=== PATIENT | male | born 1980 | race African-American/Black ===

== ENCOUNTER 2024-12-01 17:33 | Emergency (ER) | payer SELFPAY ==
[~2024-12-01] VITALS: Ht 177.8 cm; Wt 85.0 kg
[2024-12-01 17:37] VITALS: BP 136/98; PULSE 65; RESP 18; TEMP 37; O2SAT 98
== END 2024-12-01 19:07 | disposition left against medical advice (07) ==
LOC: ER 17:33
DX: M54.2 Cervicalgia (principal)
CPT/HCPCS: 99283